=== PATIENT | female | born 1945 | race Caucasian/White ===

== ENCOUNTER 2018-12-29 08:29 | Outpatient (CLI) | payer MEDICARE, OTHER ==
[2018-12-29 18:14] LABS: ALBUMIN 4.2 g/dL (3.2-5.5); ALBUMIN/GLOBULIN RATIO 1.8 (1.0-2.2); ALKALINE PHOSPHATASE 45 IU/L (42-121); ALT ALANINE AMINOTRANSFERASE 19 IU/L (10-60); AST ASPARTATE AMINOTRANSFERASE 18 IU/L (10-42); BILIRUBIN,TOTAL 0.8 mg/dL (0.2-1.0); BUN - BLOOD UREA NITROGEN 19 mg/dL (6-20); CARBON DIOXIDE - CO2 28 mmol/L (21-32); CHLORIDE 101 mmol/L (101-111); CHOL/HDL RATIO 3.4 (<4.4); CHOLESTEROL 206 mg/dL; CREATININE 0.8 mg/dL (0.4-1.0); GFR - MDRD 71 (>89); GLUCOSE 103 mg/dL (70-100); HDL CHOLESTEROL 60 mg/dL; LDL CHOLESTEROL,CALCULATED 128 mg/dL; LDL/HDL RATIO 2.1 (<4.4); SODIUM 141 mmol/L (135-145); TOTAL PROTEIN 6.5 g/dL (6.7-8.2); VLDL CHOLESTEROL 18 mg/dL
== END 2018-12-29 08:30 | disposition home or self-care (01) ==
LOC: LAB.S 08:29
PROVIDERS: ATTEND Family Medicine
DX: Z00.01 Encounter for general adult medical examination with abnormal findings (principal); R73.01 Impaired fasting glucose; M81.0 Age-related osteoporosis without current pathological fracture
CPT/HCPCS: 36415; 80053; 80061; 82306; 83721

== ENCOUNTER 2020-11-22 09:43 | Outpatient (CLI) | payer MEDICARE, OTHER ==
[2020-11-22 10:54] VITALS: BP 111/68
--- NOTE | 2020-11-22 10:54 | SLEEP CARE CONSULTATION ---
Information from patient questionnaire entered by Sanjuanita Quach. I have reviewed and concur with the information entered by Sanjuanita Quach. This document represents the service I personally performed and the decisions made by me, Prachi Bonilla ARNP. History of Present Illness Service Date and Time: 11/22/2020 0943 Reason for Visit: New patient Chief Complaint: reports: Unrefreshed sleep (sometimes), Snoring, Observed pauses in breathing (possibly), Other (determine if sleep apnea). denies: Excessive daytime sleepiness Date of Onset: snoring, probably forever Usual bedtime: 10 pm Time it takes to fall asleep: 15 minutes or less Snores at night: Yes Observed to quit breathing while asleep: No Sleeps alone due to snoring: Yes (sometimes) Number of times waking at night: 1 Reasons for waking at night: reports: Snoring (rare), Bathroom. denies: Cho fatou, Gasping for air Toss, Turn, or Twitch while sleeping: No Recalls having dreams: Yes Usually gets out of bed at: 4 - 7 am Feels refreshed in the morning: Yes (sometimes) Morning headache: No Sleepy or fatigued during the day: No Ever fallen asleep while driving: No Takes day naps: No Prior sleep studies: No Additional HPI information: I had the pleasure of seeing BERTHA GONZALEZ today regarding the possibility of her having a sleep disorder. Her current complaints are snoring and wants to determine if she has sleep apnea. She states her current partner has complained about her bloating frequent snoring. She has slept in another room to be able to sleep due to the snoring. She has woke herself up snoring and is not always rested when she gets up in the morning. She does not know if she has sleep apnea but is here to see if this is causing her snoring since it is a problem for her current partner. 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 Patient is Single and lives in [place]. Have you smoked in the past 12 months: No Alcohol use: Yes Alcohol amount and frequency: 1 drink 2-3 times a week Caffeine use: Yes Caffeine amount and frequency: 1 cup of coffee every morning Family History Family history of sleep disordered breathing: No (don't really know) Allergies and Home Medications Drug allergies reviewed: Yes (Sulfa drugs) Home medication list reviewed: Yes (no daily medications) Allergy and home medication list: Daily multivitamin vitamin D3 B12 garlic pill Review of Systems Weight loss over past 5 years: 20 Cardiovascular: denies: high blood pressure Gastrointestinal: denies: heartburn Neurological: denies: headaches Psychiatric: denies: anxiety, depression Ear/Nose/Throat: reports: wisdom teeth removed. denies: injury to nose, tonsillectomy Endocrine: denies: thyroid disease Immunologic: reports: allergies to food or environment (rare seasonal allergies) Physical Exam Blood Pressure: 111/68 Cuff size: wrist Heart Rate: 57 O2 Saturation: 98 Height: 5 ft 9 in Weight: 174 lb Body Mass Index: 25.7 BMI Classification: Overweight Neck circumference: 14.5 (inches) Mouth and throat: narrow oropharynx Soft palate: long Hard palate: normal Uvula visualization: 50% Mallampati Class II Tongue: normal in size Tonsils: 1+ Neck: normal w/o lymphadenopathy or thyromegaly Heart: regular rate and rhythm Lungs: clear bilaterally Impression and Plan 1. Suspected Obstructive Sleep Apnea-Hypopnea Syndrome, as suggested by a history of loud and irregular snoring, unrefreshed sleep, cognitive impairment and observed pauses in breathing. Narrow oropharynx and obesity are common predisposing factors for obstructive sleep apnea-hypopnea syndrome. I recommend proceeding to polysomnography to confirm the diagnosis and to assess severity. If the patient has significant sleep disordered breathing, a manual CPAP titration study will also be performed to find the optimal treatment pressure. I informed the patient of what the sleep studies involve and after some discussion, obtained agreement to proceed. The pathophysiology of obstructive sleep apnea-hypopnea syndrome was discussed with the patient and health risks of cardiovascular and cerebrovascular disease if not treated. AAS brochure for obstructive sleep apnea-hypopnea syndrome given and reviewed. Risks of drowsy driving discussed in detail and patient advised to avoid long distance driving and to last puller at the first sign of drowsiness. Patient agreed to plan. * Schedule polysomnography +- manual CPAP titration study and return in 1-2 weeks after the study to discuss result and initiate therapy. * Avoid long distance driving or driving when feeling sleepy. * Avoid alcohol, sedative and muscle relaxant around bedtime. * Attempt to lose weight. * Review instructions provided by trained office staff on how to prepare for the sleep study. * Return for follow-up after sleep study completed. Counseling Topics: Weight loss health impact Visit Type: In Office Time Spent with Patient (minutes): 32 Provider Statement: I spent 100% of the Face to Face Visit with the patient with greater than 50% spent counseling the patient and coordination of care.
== END 2020-11-22 09:44 | disposition home or self-care (01) ==
LOC: SC 09:43
PROVIDERS: ATTEND Nurse Practitioner Family
DX: R06.81 Apnea, not elsewhere classified (principal); R41.89 Other symptoms and signs involving cognitive functions and awareness; G47.8 Other sleep disorders; R06.83 Snoring
CPT/HCPCS: 99203; G0463; 99212

== ENCOUNTER 2021-01-17 20:39 | Outpatient (CLI) | payer MEDICARE, OTHER | END 2021-01-17 20:40 | disposition home or self-care (01) | LOC: SC 20:39 | PROVIDERS: ATTEND Nurse Practitioner Family | DX: G47.33 Obstructive sleep apnea (adult) (pediatric) (principal); G47.61 Periodic limb movement disorder | CPT/HCPCS: 95810 ==

== ENCOUNTER 2021-01-25 10:48 | Outpatient (CLI) | payer MEDICARE, OTHER ==
--- NOTE | 2021-01-25 11:28 | SLEEP CARE CONSULTATION ---
Information from patient questionnaire entered by Sanjuanita Quach. I have reviewed and concur with the information entered by Sanjuanita Quach. This document represents the service I personally performed and the decisions made by , Prachi Bonilla ARNP. History of Present Illness Service Date and Time: 01/25/2021 1048 Initial [place] Sleepiness Scale score: 3 (in 2020) Current [place] Sleepiness Scale score: 1 Additional HPI information: BERTHA GONZALEZ returns for follow up and results of the recently performed polysomnography. I explained the pathophysiology behind obstructive sleep apnea. We then spent quite a bit of time discussing different treatment options. For mild obstructive sleep apnea, surgery and oral appliance are alternatives to nasal CPAP therapy but in moderate or severe cases, nasal CPAP is the most effective and reliable treatment. Because apnea is primarily in supine position, then positional management therapy could be effective. Methods discussed such as positioning with pillows, using a T-shirt with tennis balls in the back, and shown commercial products that have a pillow format on back to prevent supine sleep. I reviewed the impact of weight changes on sleep apnea and strongly recommended losing weight. AASM patient education Non Pap treatment pamphlets reviewed and given to patient. Patient counseled not drink alcohol less than 4 hours before bedtime as it can increase snoring and apnea. Patient was cautioned about risks of drowsy driving until sleepiness symptoms resolve. Sleep Study - Results Type of Sleep Study: Polysomnography Prior sleep studies: No Polysomnography/Home Sleep Study results: IMPRESSION: The quality of the study is good. The patient had normal sleep efficiency. Except for mild sleep fragmentation, the sleep architecture was also normal. Respiratory monitoring showed mild obstructive sleep apneahypopnea (AHI = 9.0) associated with frequent arousals, oxyhemoglobin desaturation and mild hypoxia (clay oxygen saturation of 84%). The respiratory events occurred mainly during REM sleep (supine AHI = 7.6; nonsupine = 10.06). Snore was moderate in intensity. There was moderate periodic leg movement of sleep contributing to the sleep fragmentation. Cardiac rhythm was normal sinus rhythm without significant arrhythmia. No abnormal behavior (parasomnia) observed during the night. Allergies and Home Medications Home medication list reviewed: Yes (no changes) Review of Systems Review of systems same as previous: Yes (no changes) Physical Exam Heart Rate: 58 O2 Saturation: 93 Height: 5 ft 9 in Weight: 174 lb Body Mass Index: 25.7 BMI Classification: Overweight Impression and Plan 1. Obstructive Sleep Apnea-Hypopnea Syndrome, mild, with lowest oxygen saturation of 84%. I reviewed with patient her choices of treatment including CPAP, oral appliance and possibly surgery. She would like to think about it and do some research prior to her going forward. I strongly advised weight loss to help reduce apneas. She was also advised to sleep with her head elevated since her apneas are about the same regardless of position. 2. Periodic limb movement, moderate, that did fragment patients sleep. Periodic limb movement of sleep (PLMS) is characterized by episodes of repetitive limb movements that occur during sleep and usually involve the lower limbs. Patient was advised that no treatment is needed at this time. If symptoms increase, then further evaluation is indicated. * Nasal auto CPAP therapy, pressure at 4-15 cm H2O. * Attempt to lose weight. * Avoid alcohol consumption near bedtime. * Avoid supine sleep until using CPAP. * The patient is again cautioned about driving until sleepiness completely resolves. * Return one month after CPAP obtained. I will assess response to therapy and compliance at that time. Counseling Topics: Weight loss health impact Visit Type: In Office Time Spent with Patient (minutes): 25 Provider Statement: I spent 100% of the Face to Face Visit with the patient with greater than 50% spent counseling the patient and coordination of care.
== END 2021-01-25 10:49 | disposition home or self-care (01) ==
LOC: SC 10:48
PROVIDERS: ATTEND Nurse Practitioner Family
DX: G47.33 Obstructive sleep apnea (adult) (pediatric) (principal); G47.61 Periodic limb movement disorder
CPT/HCPCS: 99213; G0463; 99212